=== PATIENT | female | born 1990 | race Caucasian/White ===

== ENCOUNTER 2018-05-26 21:30 | Emergency (ER) | payer BC ==
[~2018-05-26 21:30] MED LIST: ISOVUE-370 76%-LOCM 1 ML ONE
[2018-05-26] MEDS ORDERED: Clindamycin/D5W 900 mg/50 ml Premix Bag ONE (22:03)
--- NOTE | 2018-05-26 22:05 | RAD ---
CHEST ONE VIEW 05/26/18 HISTORY: Wound infection. COMPARISON: None. FINDINGS: The lungs are slightly hypoinflated with vascular crowding and bibasilar atelectasis. No pneumothorax . No acute osseous abnormality. IMPRESSION: No acute intrathoracic abnormality. POS: [facility]
[2018-05-26] MEDS ORDERED: Gentamicin Sulfate 380 MG in Sodium Chloride 0.9% 100 ML IVPB ONE (22:15)
[2018-05-26 22:21] LABS: #Eosinphils 0.1 thou/uL (0.0-0.7); #Lymphocytes 1.7 thou/uL (1.20-3.40); #Neutrophils 10.6 thou/uL (1.40-6.50); %Basophils 0.4 % (0.0-1.0); %Eosinophils 0.6 % (0.0-10.0); %Lymphocytes 12.5 % (21.0-51.0); %Monocytes 7.6 % (0.0-10.0); Hemoglobin 10.8 g/dL (12.0-16.0); Mean Corpuscular HGB CONC 32.5 g/dL (32.0-36.0); Mean Corpuscular Hemoglobin 31.7 pg (27.0-31.0); Mean Corpuscular Volume 97.4 fL (78.0-98.0); Mean Platelet Volume 6.9 fL (7.4-10.4); Platelet Count 457 thou/uL (130-400); RBC Distribution Width 12.2 % (11.5-14.5); Red Blood Cell (RBC) Count 3.42 mill/uL (4.20-5.40); White Blood Cell (WBC) Count 13.4 thou/uL (4.8-10.8)
--- NOTE | 2018-05-26 22:37 | CT ---
CT ABDOMEN AND PELVIS WITH CONTRAST: 05/26/18 HISTORY: Abdominal pain. COMPARISON: None. FINDINGS: The lung bases are clear. No pericardial effusion. The spleen, pancreas, liver are unremarkable. Mild distention of the gallbladder without pericholecys tic inflammation. There continues to be endometrial gas. There is also some gas along the anterior lower abdominal scar . There is skin thickening along the left side of the lower hemiabdomen. No drainable fluid collectio n. No free intraperitoneal gas or fluid. No dilated loops of large or small bowel. Mild dilatation of the right distal ureter near the pelvic brim likely sequela of as the uterus is shifted to the right. No abnormal renal enhancing mass. Renal enhancement is bilateral symmetric. Adrenal glands are unrema rkable. No retroperitoneal adenopathy. Skeleton is unremarkable. IMPRESSION: Expected postoperative recent findings. There is, however, skin thickening left lower hemiabdominal w all which may be sequela of cellulitis. No deep drainable fluid collection. Small volume gas and sutu re just superficial to the rectus abdominis musculature not unexpected for recent . POS: [facility]
[2018-05-26 22:42] LABS: ALT (SGPT) 7 U/L (8-55); AST (SGOT) 14 U/L (5-34); Albumin 3.1 g/dL (3.5-5.0); Alkaline Phosphatase 165 U/L (40-150); Anion Gap 18 mmol/L (10-20); BUN (Urea Nitrogen) 8 mg/dL (7.0-18.7); Bilirubin, Total 0.3 mg/dL (0.2-1.2); Calc. Creatinine Clearance 0 mL/min (70-130); Calcium 9.2 mg/dL (7.8-10.44); Carbon Dioxide 19 mmol/L (22-29); Chloride 108 mmol/L (98-107); Estimated GFR-MDRD Greater than 90; Globulin 3.5 g/dL (2.4-3.5); Glucose 83 mg/dL (70-105); Potassium 4.1 mmol/L (3.5-5.1); Protein, Total 6.6 g/dL (6.0-8.3); Sodium 141 mmol/L (136-145)
[2018-05-26 23:13] LABS: Bilirubin Negative (Negative); Blood, Urine Large (Negative); Clarity TURBID (Clear); Glucose, Urine (Dipstick) Negative (Negative); Leukocyte Large (Negative); Nitrite Negative (Negative); Protein, Urine (Dipstick) 100 mg/dL (Neg-Trace); Specific Gravity, Urine 1.031 (1.002-1.036); pH, Urine 7.5 (5.0-9.0)
[2018-05-26 23:16] LABS: Bacteria/HPF None Seen HPF (None Seen); Squamous Epithelial 0-3 HPF (0-3)
[2018-05-26 23:24] LABS: Pathc Cast-AUWi Flag 3.98 (0-2.49); Yeast-AUWi Flag 763.3 (0-25.0)
[2018-05-26 23:29] LABS: RBC/HPF GREATER THAN 50-TNTC HPF (0-3)
== END 2018-05-27 00:07 | disposition short-term general hospital (02) ==
LOC: ERS 21:30
DX: O86.00 Infection of obstetric surgical wound, unspecified (principal); O99.89 Other specified diseases and conditions complicating pregnancy, childbirth and the puerperium; R50.9 Fever, unspecified; Z79.899 Other long term (current) drug therapy
CPT/HCPCS: 36415; 71045; 74177; 80053; 81003; 81015; 85025; 87040; 96365; 96368; J1580; J3490; J7050; Q9966

== ENCOUNTER 2018-06-02 20:38 | Emergency (ER) | payer BC ==
[2018-06-02 21:36] LABS: #Basophils 0.1 thou/uL (0.0-0.2); #Eosinphils 0.2 thou/uL (0.0-0.7); #Lymphocytes 3.2 thou/uL (1.20-3.40); #Monocytes 0.8 thou/uL (0.11-0.59); #Neutrophils 6.6 thou/uL (1.40-6.50); %Eosinophils 1.9 % (0.0-10.0); %Lymphocytes 29.1 % (21.0-51.0); %Monocytes 7.7 % (0.0-10.0); %Neutrophils 60.3 % (42.0-75.0); Hemoglobin 12.7 g/dL (12.0-16.0); Mean Corpuscular HGB CONC 33.4 g/dL (32.0-36.0); Mean Corpuscular Hemoglobin 31.5 pg (27.0-31.0); Mean Corpuscular Volume 94.5 fL (78.0-98.0); Mean Platelet Volume 7.1 fL (7.4-10.4); Platelet Count 538 thou/uL (130-400); RBC Distribution Width 12.3 % (11.5-14.5); Red Blood Cell (RBC) Count 4.02 mill/uL (4.20-5.40); White Blood Cell (WBC) Count 10.9 thou/uL (4.8-10.8)
[2018-06-02 21:59] LABS: ALT (SGPT) 8 U/L (8-55); AST (SGOT) 19 U/L (5-34); Albumin 3.6 g/dL (3.5-5.0); Alkaline Phosphatase 102 U/L (40-150); Anion Gap 17 mmol/L (10-20); BUN (Urea Nitrogen) 13 mg/dL (7.0-18.7); Bilirubin, Total 0.2 mg/dL (0.2-1.2); Calc. Creatinine Clearance 0 mL/min (70-130); Calcium 9.3 mg/dL (7.8-10.44); Carbon Dioxide 21 mmol/L (22-29); Chloride 107 mmol/L (98-107); Estimated GFR-MDRD 69; Globulin 3.4 g/dL (2.4-3.5); Glucose 80 mg/dL (70-105); Potassium 4.2 mmol/L (3.5-5.1); Sodium 141 mmol/L (136-145)
== END 2018-06-02 23:24 | disposition home or self-care (01) ==
LOC: ERS 20:38
DX: O99.345 Other mental disorders complicating the puerperium (principal); F53.0 Postpartum depression
CPT/HCPCS: 80053; 84443; 85025; 96360; 96361

== ENCOUNTER 2018-06-20 20:53 | Emergency (ER) | payer BC ==
[2018-06-20 21:31] LABS: #Lymphocytes 1.1 thou/uL (1.20-3.40); #Monocytes 0.9 thou/uL (0.11-0.59); #Neutrophils 11.5 thou/uL (1.40-6.50); %Basophils 0.1 % (0.0-1.0); %Eosinophils 0.3 % (0.0-10.0); %Lymphocytes 8.1 % (21.0-51.0); %Monocytes 6.5 % (0.0-10.0); %Neutrophils 84.9 % (42.0-75.0); Hemoglobin 12.8 g/dL (12.0-16.0); Mean Corpuscular HGB CONC 33.5 g/dL (32.0-36.0); Mean Corpuscular Hemoglobin 31.4 pg (27.0-31.0); Mean Corpuscular Volume 93.9 fL (78.0-98.0); Mean Platelet Volume 7.5 fL (7.4-10.4); Platelet Count 274 thou/uL (130-400); Red Blood Cell (RBC) Count 4.07 mill/uL (4.20-5.40); White Blood Cell (WBC) Count 13.5 thou/uL (4.8-10.8)
[2018-06-20 21:51] LABS: ALT (SGPT) 12 U/L (8-55); AST (SGOT) 17 U/L (5-34); Albumin 4.1 g/dL (3.5-5.0); Alkaline Phosphatase 101 U/L (40-150); Anion Gap 17 mmol/L (10-20); BUN (Urea Nitrogen) 13 mg/dL (7.0-18.7); Bilirubin, Total 0.9 mg/dL (0.2-1.2); Calc. Creatinine Clearance 0 mL/min (70-130); Calcium 9.4 mg/dL (7.8-10.44); Carbon Dioxide 22 mmol/L (22-29); Chloride 102 mmol/L (98-107); Estimated GFR-MDRD 81; Globulin 3.2 g/dL (2.4-3.5); Glucose 98 mg/dL (70-105); Potassium 3.9 mmol/L (3.5-5.1); Protein, Total 7.3 g/dL (6.0-8.3); Sodium 137 mmol/L (136-145)
--- NOTE | 2018-06-20 21:57 | CT ---
ABDOMEN CT WITH CONTRAST PELVIC CT WITH CONTRAST 06/20/18 HISTORY: Wound vac from . Went to Urgent Care and told to come to ER. Infection. Sepsis. COMPARISON: 05/26/18. FINDINGS: ABDOMEN CT: Lung bases are clear. Heart size is normal. No significant pericardial fluid. The descending thoraci c aorta and abdominal aorta have normal caliber. No periaortic fat stranding. Gallbladder is unremark able. Portal vein is patent. Liver, spleen, pancreas and adrenal glands have appropriate enhancement. Ther e are scattered nonspecific, nonenlarged mesenteric lymph nodes. There is mild stranding of the right lower quadrant mesentery. No mass, free air or free fluid. Symmetric enhancement of the kidneys. No obstructive uropathy. Symmetric attenuation of the psoas mus cles. There is stranding of the ventricle subcutaneous fat at the level of the umbilicus. Additional strand ing of the anterior abdominal wall with pockets of air attenuation, noticed on previous examination h ave significantly resolved. There is still some nonspecific stranding without evidence of subcutaneou s emphysema or fluid. A limited evaluation of the alimentary canal by lack of oral contrast. There is no evidence of small bowel obstruction. Ileocecal junction is normal. Appendix is not appreciated. Nevertheless, no inflam mation of the cecal apex. There is some mild stranding involving the pericolonic fat at the level of the sigmoid colon and rectum. There are some mildly enlarged pericolonic lymph nodes. Correlate for p ossible colitis. No evidence of abscess or perforation. CT PELVIS: Urinary bladder, uterus and adnexal structures are unremarkable. No pelvic mass, lymphadenopathy, chel e air or free fluid. No lytic or blastic lesions in the osseous structures. IMPRESSION: 1. Mild bowel wall thickening with evidence of lymphadenopathy and mesenteric stranding involvin g the sigmoid colon and rectum. Correlate for an infectious or inflammatory colitis. Mildly prominent lymph nodes are presumed to be reactive. 2. Interval resolution of previous noted subcutaneous emphysema involving the anterior lower abd ominal wall. POS: [facility]
[2018-06-20] MEDS ORDERED: Cefepime 2 GM VIAL ONE (22:04)
[2018-06-20 22:14] LABS: Bilirubin Negative (Negative); Blood, Urine Trace (Negative); Clarity CLEAR (Clear); Glucose, Urine (Dipstick) Negative (Negative); Leukocyte Small (Negative); Nitrite Negative (Negative); Protein, Urine (Dipstick) Negative (Neg-Trace); Specific Gravity, Urine 1.017 (1.002-1.036); Urobilinogen 0.2 mg/dL (0.2-1.0)
[2018-06-20 22:16] LABS: Bacteria/HPF None Seen HPF (None Seen); Hyaline Casts/LPF 0-3 HYALINE CAST LPF (0-3 Hyaline); Pathc Cast-AUWi Flag 0.14 (0-2.49); RBC/HPF 0-3 HPF (0-3)
== END 2018-06-20 22:51 | disposition home or self-care (01) ==
LOC: ERS 20:53
DX: O99.89 Other specified diseases and conditions complicating pregnancy, childbirth and the puerperium (principal); A09 Infectious gastroenteritis and colitis, unspecified; Z79.899 Other long term (current) drug therapy
CPT/HCPCS: 74177; 80053; 81003; 81015; 83605; 85025; 87040; 87086; 87149; 93005; 96361; 96365; J0692; Q9966